=== PATIENT | male | born 1960 | race African-American/Black ===

== ENCOUNTER 2025-01-15 19:27 | Emergency (ER) | payer BC, SELFPAY ==
--- NOTE | ~2025-01-15 | XR_ITS ---
CLINICAL HISTORY: fall pain unable to bear weight. 4 view right knee Comparison: None provided Findings: No fractures or dislocations. Moderate joint effusion with loose bodies in the superior patellofemoral joint space. IMPRESSION: 1. No acute fracture. Moderate joint effusion. This document has been electronically signed by: Loren Garcia MD on 01/15/2025 20:55:50
[2025-01-15 20:08] VITALS: BP 159/75; PULSE 65; RESP 16; TEMP 36.9; O2SAT 100; BMI 26.2
--- NOTE | 2025-01-15 22:27 | PC.NURSE ---
pt medicated as per mar
--- NOTE | 2025-01-15 22:44 | ED.GENADULT ---
HPI - General Adult General Chief complaint: Extremity Injury, Lower Stated complaint: Rt Knee injury Time Seen by Provider: 01/15/25 21:19 Source: patient Limitations: no limitations History of Present Illness ED Provider: Sarah Diamond PA-C HPI narrative: 64-year-old male presents with right knee pain. Patient states he was working out of the gym, he was attempting to perform a pull up, he fell, landing on the right knee. Patient is nonweightbearing secondary to pain. Limited flexion and extension. The patient is not on a blood thinner. Related Data Previous Rx's ?Medication ?Instructions ?Recorded meloxicam 15 mg tablet 15 mg PO DAILY PRN pain #7 tabs 01/15/25 Allergies Allergy/AdvReac Type Severity Reaction Status Date / Time No Known Allergies Allergy Verified 01/15/25 20:10 Review of Systems Review of Systems: Yes all other systems are reviewed and are negative Constitutional: Constitutional: Denies fatigue and Denies fever(s) Musculoskeletal: Musculoskeletal: Reports arthralgias and Reports joint swelling Endocrine: Endocrine: Denies fatigue Physical Exam ED Vital Signs: Vital Signs - 24 hr 01/15/25 20:08 Temperature 98.4 F Pulse Rate 65 Respiratory Rate 16 Blood Pressure 159/75 H Pulse Oximetry 100 Oxygen Delivery Method Room Air BMI result Body Mass Index 26.2 Const Other: Alert Resp Effort & Inspection: normal respiratory effort Cardio Other: Normal peripheral perfusion Skin Other: Warm dry no rash Extrem Other: Subtle swelling noted, limited flexion and extension no redness no erythema no bruising Psych Other: Cooperative Medications Administered Discontinued Medications Generic Name Dose Route Start Last Admin Trade Name Freq PRN Reason Stop Dose Admin Ketorolac Tromethamine 15 mg 01/15/25 22:17 01/15/25 22:25 Ketorolac Tromethamine 15 Mg/Ml Vial IM 01/15/25 22:18 15 mg ONCE ONE Administration Medical Decision Making Medical Decision Making [facility] Narrative: 64-year-old male presents with right knee pain. Patient states he was working out of the gym, he was attempting to perform a pull up, he fell, landing on the right knee. Patient is nonweightbearing secondary to pain. Limited flexion and extension. The patient is not on a blood thinner. No underlying chronic medical conditions History: Per patient I have considered the following differential diagnoses: Fracture, dislocation, sprain, contusion Plan: X-ray ordered from triage, there was no fracture or dislocation, he does have an effusion, with a sprain. We will send with a knee immobilizer crutches and home care instructions. I have independently reviewed the following tests: X-ray right knee:Findings: No fractures or dislocations. Moderate joint effusion with loose bodies in the superior patellofemoral joint space. IMPRESSION: 1. No acute fracture. Moderate joint effusion. Differential Diagnosis Differential Diagnoses: The differential diagnosis associated with the presentation includes See medical decision-making Admission/Observation Consideration of admission/observation: Escalation of care including admission/observation considered Not applicable Radiology Impression Discussion of test interpretation with radiology: I have reviewed the radiologist's reading. Discharge Plan Discharge Clinical Impression: Contusion of right knee, Effusion of knee joint right Patient Disposition: Home, Self-Care Instructions: Contusion in Adults (ED), P.R.I.C.E. Treatment (ED) Additional Instructions: The x-ray was negative for fracture or dislocation, you sustained a contusion. You were found to have fluid around the knee this is called an effusion. See home care instructions. Use the knee immobilizer and crutches as needed, bear weight as tolerated. Use the meloxicam as directed take it with food, this is an anti-inflammatory. Follow up with your primary care provider as needed. Prescriptions: New meloxicam 15 mg tablet 15 mg PO DAILY PRN (Reason: pain) Qty: 7 0RF Interventions: ED Discharge Assessment Last Done: 01/15/25 23:46 Discharge Date/Time: 01/15/25 23:47 Print Language: Djib[place]ian
--- NOTE | 2025-01-15 23:45 | PC.NURSE ---
While attempting to stand using crutches, pt fell falling on to his left hip. Pt states when bearing weigh to stand the pain was so bad it made my knee buckle and i just fell TW was standing near pt but unable to catch him. No HS or LOC or any injuries. pt denies any hip pain or other pain locations beside his knee that he was treated for. VSS. Dr Mujica assessed pt. Pt cleared to continue discharging.
[2025-01-15 23:46] VITALS: BP 144/85; PULSE 64; RESP 16; TEMP 36.8; O2SAT 98
== END 2025-01-15 23:47 | disposition home or self-care (01) ==
PROVIDERS: Emergency Provider Emergency Medicine; PCP Internal Medicine
DX: M25.461 Effusion, right knee (principal)
CPT/HCPCS: 73564; 96372; 99283; 99284; J1885

== ENCOUNTER → 2025-01-15 20:15 | Outpatient (BNV) | payer OTHER, SELFPAY | PROVIDERS: PCP Internal Medicine; Visit Provider Student in an Organized Health Care Education/Training Program | DX: M25.461 Effusion, right knee (principal); W19.XXXA Unspecified fall, initial encounter | CPT/HCPCS: 73564 ==

== ENCOUNTER 2025-02-12 09:45 | Outpatient (AMB) | payer BC, SELFPAY ==
--- NOTE | 2025-02-12 10:03 | MHC.OFFVIS ---
Vital Signs 02/12/25 10:16 02/12/25 10:22 Height 5 ft 11 in 5 ft 11 in Weight 188 lb 188 lb BMI 26.2 26.2 Intake Visit Reasons: Contusion of rt knee, Effusion of knee joint rt Intake Note: Curtis is a 64 year old male who presents today for a evaluation of his right knee pain, DOI 01/15/25. Patient reports he was working out at the gym and he was attempting to perform a pull up. When he fell landing on the right knee. He was given Naproxan and a injection at the ED. Patient states he has fallen 6 times due to his knee giving out. He notices a lot of swelling around his knee and its moving down to his leg. Allergies No Known Allergies Allergy (Verified 02/12/25 10:08) HPI HPI Contusion of rt knee, Effusion of knee joint rt: Details: Mr. Stubbs is a 64-year-old male who presents to the office today for evaluation after a right knee injury that he obtained on 01/15/2025. Patient states that he was lifting weights when he tripped and fell landing directly onto an iron bar with the right knee. He felt immediate pain and had difficulty with ambulation. He was seen in the emergency department where x-rays were obtained and he was placed into a knee immobilizer. Since then he has had multiple episodes of right knee giving out resulting in falls. He has no significant past medical history. 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 Palpable defect at the quad tendon attachment site. Inability to fully extend at the knee due to weakness. Able to dorsiflex and plantar flex. NVI. Psych Appearance: grossly normal Mental Status: mental status grossly normal Attitude: cooperative Assessment & Plan Assessment & Plan (1) Rupture of right quadriceps tendon: Code(s): S76.111A - Strain of right quadriceps muscle, fascia and tendon, initial encounter Category: Medical Plan Mr. Stubbs is a 64-year-old male who presents to the office today for evaluation after a right knee injury that he obtained on 01/15/2025. Patient states that he was lifting weights when he tripped and fell landing directly onto an iron bar with the right knee. He felt immediate pain and had difficulty with ambulation. He was seen in the emergency department where x-rays were obtained and he was placed into a knee immobilizer. Since then he has had multiple episodes of right knee giving out resulting in falls. He has no significant past medical history. I discussed the case with Dr. Anderson, who was available but did not meet the patient and explained the extent of the injury to the patient and options available which include surgical intervention. I explained the procedure in detail along with the length of recovery and rehab course. I explained the risk, benefits and alternatives.? Risks: which include, but are not limited to infection, bleeding, hematoma, nerve injury, ongoing pain, swelling, and stiffness, perioperative risk of injury to bones and soft tissues, blood clots, hardware failure, nonunion, persistent instability, hardware irritation or need for removal, chronic pain, ongoing weakness, cartilage damage accelerating arthritis, amputation, expiration and risks of general anesthesia. long term care pharmacist risks may include functional deficits including but not limited to squatting, stair climbing and/or kneeling. Expected Benefits: Restores the knee extensor mechanism, lower the risk for further injury to the cartilage reducing risk of early onset arthritis, improved ability to regain normal or near-normal quad strength and return to normal activities of daily living, sports, or work.? Alternatives: Continued conservative treatment with physical therapy, strengthening, casting in extension.? However, this has a much higher risk of instability. The patient had ample opportunity to ask questions. All questions were answered to the patient's satisfaction. The patient verbalized understanding and agreed to move forward with right knee quadriceps tendon repair performed by Dr. Anderson. The patient demonstrates understanding of the risks, benefits and alternatives and wishes to proceed.?Surgical consent form was signed in the office today with myself, Bre Hsieh PA-C, as a witness. Coding Level of Care Code New Pt Level 4 (54004) Diagnoses Rupture of right quadriceps tendon S76.111A
[2025-02-12 10:16] VITALS: BMI 26.2
[2025-02-12 10:22] VITALS: BMI 26.2
== END 2025-02-12 11:12 | disposition home or self-care (01) ==
LOC: HO.HOS 09:45
PROVIDERS: PCP Internal Medicine; Visit Provider Physician Assistant
DX: S76.111A Strain of right quadriceps muscle, fascia and tendon, initial encounter (principal)
CPT/HCPCS: 99204

== ENCOUNTER 2025-02-14 06:03 | Day surgery (SDC) | payer BC, SELFPAY ==
--- NOTE | 2025-02-13 08:42 | P.CONAN_ITS ---
Documented by User: Waleska Gonzalez NP 02/13/25 08:43 HPI - Anesthesia Eval Consult details Narrative: 64yo M for Right Quadricep Repair PMFSH Active Problems Active Problems: All Active Problems Rupture of right quadriceps tendon (Acute) Past Medical History Medical History No pertinent past medical history Surgical History Surgical History No pertinent past surgical history Social History Social History Alcohol intake: never Patient Tobacco Use Status: Never used Tobacco Use of substances other than those prescribed or required for medical reasons: No Are you DNR?: No Advance Directives: No Advance Directives Information Provided: Yes Current occupational status: employed 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 [employer] Allergies Allergy/AdvReac Type Severity Reaction Status Date / Time No Known Allergies Allergy Verified 02/14/25 06:27 Home Medications ?Medication ?Instructions ?Recorded ?Confirmed ?Last Taken ?Type naproxen 500 mg tablet 500 mg PO BID 02/12/2502/1402/12/25 History Assessment and Plan Assessment Anesthesia Assessment: Chart Reviewed Documented by User: Scott Don MD 02/14/25 07:26 PMFSH Past Medical History Medical History No pertinent past medical history Family History Family history of problems with anesthesia: No Surgical History Surgical History No pertinent past surgical history History of Problems with Anesthesia: Unobtainable Social History Social History Alcohol intake: never Patient Tobacco Use Status: Never used Tobacco Use of substances other than those prescribed or required for medical reasons: No Are you DNR?: No Advance Directives: No Advance Directives Information Provided: Yes Current occupational status: employed 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 Meds Allergies Allergy/AdvReac Type Severity Reaction Status Date / Time No Known Allergies Allergy Verified 02/14/25 06:27 Home Medications ?Medication ?Instructions ?Recorded ?Confirmed ?Last Taken ?Type naproxen 500 mg tablet 500 mg PO BID 02/12/2502/1402/12/25 History Exam Exam Date and Time: 02/14/25 Airway Mallampati Class: II TM Dist: >3cm Neck ROM: Full Heart: rrr Lungs: ctab vesicular Assessment and Plan Assessment Anesthesia Assessment: Anesthesia Plan Discussed Final Anesthetic Review Family History of Problems with Anesthesia: No History of Problems with Anesthesia: Unobtainable NPO: Yes ASA Class: I Final Preanesthetic Review: No Changes in Pt Med Stat, Meds/Allgs Chart Reviewed, Consent Obtained/Reviewed and Anes Risks/Benef Reviewed Patient Risk: Low Procedure Risk: Low Anesthetic Plan Anesthetic Plan: GA Disposition: Standard PACU
[2025-02-14] VITALS (10 sets, daily range): BP systolic 110–130; BP diastolic 71–86; PULSE 60–88; RESP 12–14; TEMP 36.1–36.7; O2SAT 96–100; BMI 27.2
[2025-02-14] MEDS: Lactated Ringers 1,000 ML 100 ML IVCONT (07:04)
--- NOTE | 2025-02-14 07:22 | MHC.SHP ---
Pre-Procedural Eval Section A - 24 Hr Update-Section A only Date of Service: 02/14/25 The patient is an INPATIENT: No Changes since office visit: No Cold of Flu in the past 2 weeks, No New Medical Problems, No Changes in Medication and No Patient answered all questions The patient has been examined within 24 hours of the surgical procedure. The History & Physical has been completed within 30 days and I have reviewed it.: Yes Section B - Complete if H&P > 30 days Chief Complaint: Other specified injury of right quadriceps muscle, Allergies: Allergies Allergy/AdvReac Type Severity Reaction Status Date / Time No Known Allergies Allergy Verified 02/14/25 06:27 Plan I have reviewed the history and physical and performed a pertinent physical examination on my patient. No changes have occurred unless specified. Time Spent With Patient Time: Total time managing care of this patient today ____ minutes.
--- NOTE | 2025-02-14 10:03 | PM.OP ---
Brief Operative Note Date of Service: 02/14/25 Pre-op diagnosis: Right quad tendon rupture Post-op diagnosis: same Procedure: Right quad tendon repair Implants: Eric and Nephew 4.75 double laoded suture anchor x 3 Regeneten Large Bioinductive collagen patch Surgeon: Manuel Anderson MD Was an Glaze Grinder used for this Procedure?: No Estimated blood loss (mL): 200 IV fluids (mL): 1,000 Pathology: none sent Condition: stable Disposition: PACU
--- NOTE | 2025-02-14 11:22 | PC.NURSE ---
PATIENT GIVEN ZOFRAN 4 MG SL PRIOR TO DISCHARGE FOR COMPLAINT OF NAUSEA. PATIENT REPORTS FEELING MUCH BETTER AT THIS TIME AND WANTS TO GO HOME.
--- NOTE | 2025-02-22 09:39 | P.OP_ITS ---
Operative Note Operative Note Date of Service: 02/14/25 Narrative: Date of Service: 02/14/25 Pre-op diagnosis: Right quad tendon rupture Post-op diagnosis: same Procedure: Right quad tendon repair Implants: Eric and Nephew 4.75 double laoded suture anchor x 3 Regeneten Large Bioinductive collagen patch Surgeon: Manuel Anderson MD Was an Sewing Techniques Demonstrator used for this Procedure?: No Estimated blood loss (mL): 200 IV fluids (mL): 1,000 Pathology: none sent Condition: stable Disposition: PACU Indications: 64 yo healthy M with 3-4 wk old quad rupture. Palpable defect on exam. Procedure in detail: Patient was brought to the operating room and placed supine on the surgical table. He was prepped and draped in standard sterile fashion and a time out was called to identify proper site, proper procedure and IV antibiotics per weight were administered. A tourniquet was not insufflated. I began by making a ~6 cm incision over the patella and distal quad tendon. I dissected down to the fascia overlying the quadriceps tendon. I incised through this and there was a near complete quadriceps tear with some of the medial retinaculum intact and so the retraction was mild. The end of the quad was synovialized/fibrotic and required debridemtn down to bleeding healthy tissue. This was done with a currette and tenotomy scissors. The wound was irrigated and the attachment site on the patella was debrided with a rongeur down to bleeding bone. I then placed 3 4.75 Eric adn Nephew double loaded Helacoil anchors into the patella spanning its medial to lateral dimensions. Two limbs from each anchor was whip-stitched up and back through the quadriceps tendon using a [place] locking stitch. These limbs were then tied to their corresponding suture and re-approximated to the patellar insertion with the leg in hyper extension. The repair was anatomic. There was passive flexion to 90deg with tolerable strain at the repair site. Given the sub acute nature of the injury I placed a lg Regeneten bio inductive collagen patch over the repair site and sewed it in place using 2.0 Vicryl. The wound was again irrigated and the sub q was closed and the skin with ranjana. Sterile dressing were applied and the patient was placed in a locked brace in extension and extubated and brought to the recovery room in stable condition. There were no known complications.
== END 2025-02-14 11:23 | disposition home or self-care (01) ==
PROVIDERS: PCP Internal Medicine; Visit Provider Orthopaedic Surgery
PROC: (CPT 27385; principal; 2025-02-14 07:30)
DX: S76.111A Strain of right quadriceps muscle, fascia and tendon, initial encounter (principal); M25.561 Pain in right knee; M25.461 Effusion, right knee; W01.198A Fall on same level from slipping, tripping and stumbling with subsequent striking against other object, initial encounter; Y93.B3 Activity, free weights; Y92.39 Other specified sports and athletic area as the place of occurrence of the external cause; Y99.9 Unspecified external cause status
CPT/HCPCS: 27385; C1713; C1763; J0131; J0668; J0690; J1100; J1171; J2003; J2250; J2405; J2704; J2795; J3010

== ENCOUNTER → 2025-02-14 06:03 | Outpatient (BNV) | payer BC, SELFPAY | PROVIDERS: PCP Internal Medicine; Visit Provider Orthopaedic Surgery | DX: S76.111A Strain of right quadriceps muscle, fascia and tendon, initial encounter (principal) | CPT/HCPCS: 27385 ==

== ENCOUNTER 2025-02-22 09:05 | Outpatient (AMB) | payer BC, SELFPAY ==
--- NOTE | 2025-02-22 09:43 | MHC.OFFVIS ---
Intake Visit Reasons: PO RT quad tendon repair 02/14/25 NE Intake Note: Curtis is a 64 year old male who presents today for a post op appointment status post right quad tendon repair 02/14/25 NE. Patient reports he is doing well. His pain has been tolerable and taking his medication when needed. Allergies No Known Allergies Allergy (Verified 02/22/25 09:47) HPI HPI PO RT quad tendon repair 02/14/25 NE: Details: Mr. Stubbs is a 64-year-old male who presents to the office today status post right quad tendon repair performed on 02/14/[address] Anderson. He presents in the ACL brace locked in extension as instructed. He reports the pain has been managed with naproxen. No additional complaints. 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 [place] intact. No surrounding erythema or drainage. No signs of infection. Able to dorsiflex and plantar flex. Calf is supple and nontender. NVI. Psych Appearance: grossly normal Mental Status: mental status grossly normal Attitude: cooperative Assessment & Plan Assessment & Plan (1) Rupture of right quadriceps tendon: Code(s): S76.111A - Strain of right quadriceps muscle, fascia and tendon, initial encounter Category: Medical Plan Mr. Stubbs is a 64-year-old male who presents to the office today status post right quad tendon repair performed on 02/14/[address] Anderson. He presents in the ACL brace locked in extension as instructed. He reports the pain has been managed with naproxen. No additional complaints. While in the office today, ranjana were removed and Steri-Strips were applied. He was placed back into the ACL brace locked in extension. He will continue to weightbear as tolerated with the brace locked in extension. The brace is to remain on at all times including sleep. He may remove for bathing only with the instruction to keep the leg straight at all times. Physical therapy prescription has been ordered at this time. He will follow up in 4 weeks, sooner if needed. Coding Level of Care Code Global (65459) Diagnoses Rupture of right quadriceps tendon S76.111A
== END 2025-02-22 10:31 | disposition home or self-care (01) ==
LOC: HO.HOS 09:05
PROVIDERS: PCP Internal Medicine; Visit Provider Physician Assistant
DX: S76.111A Strain of right quadriceps muscle, fascia and tendon, initial encounter (principal)
CPT/HCPCS: 99024

== ENCOUNTER 2025-03-21 10:07 | Outpatient (AMB) | payer BC, SELFPAY ==
--- NOTE | 2025-03-21 10:43 | A.OFFVIS_ITS ---
Intake Visit Reasons: PO RT quad tendon repair 02/14/25 NE Intake Note: Curtis is a 64 year old male who presents today for a post op appointment status post right quad tendon repair 02/14/25 NE. At his last visit his ranjana were removed and steri-Strips were applied. He was placed back into the ACL brace locked in extension. Patient reports ongoing swelling from a week he started physical therapy. He has noticed some improvements in swelling. Allergies No Known Allergies Allergy (Verified 03/21/25 10:44) HPI HPI PO RT quad tendon repair 02/14/25 NE: Details: Mr. Stubbs is a 64-year-old male who presents to the office today status post right quad tendon repair performed on 02/14/[address] Anderson. Patient is attending physical therapy. He continues to have swelling in the right knee. He has been attended physical therapy and making good progress on his ROM. He continues to use the ACL brace locked in extension when ambulating. Denies any pain. No additional complaints. 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 No erythema. Range of motion 0-70 degrees. Patient does have some edema in the calf and ankle. Calf is supple and negative Homans. Able to dorsiflex and plantar flex. NVI. Psych Appearance: grossly normal Mental Status: mental status grossly normal Attitude: cooperative Assessment & Plan Assessment & Plan (1) Rupture of right quadriceps tendon: Code(s): S76.111A - Strain of right quadriceps muscle, fascia and tendon, initial encounter Category: Medical Plan Mr. Stubbs is a 64-year-old male who presents to the office today status post right quad tendon repair performed on 02/14/[address] Anderson. Patient is attending physical therapy. He continues to have swelling in the right knee. He has been attended physical therapy and making good progress on his ROM. He continues to use the ACL brace locked in extension when ambulating. Denies any pain. No additional complaints. While in the office today while we discussed continuation of physical therapy. He may begin to unlock the brace by 10 degrees each week until full range of motion has been achieved. Patient continues to have lower leg edema which I feel will resolve once the patient is more ambulatory. Overall he is doing very well. He will follow up in 6 weeks, sooner if needed. Coding Level of Care Code Global (62170) Diagnoses Rupture of right quadriceps tendon S76.111A
== END 2025-03-21 11:08 | disposition home or self-care (01) ==
LOC: HO.HOS 10:08
PROVIDERS: PCP Internal Medicine; Visit Provider Physician Assistant
DX: S76.111A Strain of right quadriceps muscle, fascia and tendon, initial encounter (principal)
CPT/HCPCS: 99024